=== PATIENT | male | born 1965 | race Caucasian/White ===

== ENCOUNTER 2018-05-17 05:13 | Day surgery (SDC) | payer OTHER ==
[2018-05-09 11:26] VITALS: BMI 42.5
--- NOTE | 2018-05-17 11:46 | HP ---
Satellite [facility] - Chief Complaint Chief Complaint: left knee pain - Past Medical History Allergies/Adverse Reactions: Allergies Allergy/AdvReac Type Severity Reaction Status Date / Time No Known Allergies Allergy Verified 05/09/18 11:20 - Current Medications Current Medications: Home Medications Medication Instructions Recorded Hydrocodone/Acetaminophen 1 each PO Q6H #20 tablet MDD 4 05/17/18 [Hydrocodone-Acetamin 5-325 mg] Satellite Physical Exam - Physical Examination General Appearance: Well Nourished, Well Developed, Alert & Oriented x3 ENT: Clear Lung: Normal air movement Heart: Regular rate & rhythm Extremities: Other (left knee- + swelling, + ttpm edially, + mcmurrays, nvi MRI + mmt) Neurological: Intact, Alert, Oriented Satellite Impression/Plan - Impression/Plan Impression: left knee mmt, djd Operative Procedure: left knee arthroscopy Date to be Performed: 05/17/18
[2018-05-17] MEDS ORDERED: BUPIVACAINE HCL/PF 0.5% (5MG/ML) 10 ML VIAL ONE (13:21)
[2018-05-17] MEDS ORDERED: MIDAZOLAM HCL 2 MG/2 ML SINGLE DOSE VIAL ONE (14:38)
[2018-05-17] MEDS ORDERED: PROPOFOL 20 ML ONE ×2 (14:38→14:42)
[2018-05-17] MEDS ORDERED: SUCCINYLCHOLINE CHLORIDE 200 MG/10 ML VIAL ONE (14:39)
[2018-05-17] MEDS ORDERED: LIDOCAINE HCL/PF 2% SDV 5ML VIAL ONE (14:42)
[2018-05-17] MEDS ORDERED: ceFAZolin SODIUM 1 GM VIAL ONE (14:45)
[2018-05-17] MEDS ORDERED: ceFAZolin SODIUM 1 GM VIAL IVPB ONE (14:49)
--- NOTE | 2018-05-17 15:38 | OP ---
Operative Note - Note: Operative Date: 05/17/18 Pre-Operative Diagnosis: left knee medial meniscus tear, OA Operation: left knee arthroscopy, partial medial meniscectomy, debridement chondroplasty Post-Operative Diagnosis: Same as Pre-op Surgeon: Janak Macedo Anesthesiologist/AVIAN KEEPER: Lakshmi Sultana Anesthesia: General, Local Specimens Removed: shavings Estimated Blood Loss (mls): 0 Drains, Volume Out (mls): 0 Blood Volume Replaced (mls): 0 Fluid Volume Replaced (mls): 500 Operative Report Dictated: Yes
--- NOTE | 2018-05-17 16:38 | OP ---
DATE OF OPERATION: 05/17/2018 PREOPERATIVE DIAGNOSIS: Left knee medial meniscus tear and osteoarthritis. POSTOPERATIVE DIAGNOSIS: Left knee medial meniscus tear and osteoarthritis. PROCEDURE: Left knee arthroscopy, partial medial meniscectomy, and debridement chondroplasty of the medial and patellofemoral joints. SURGEON: Nevin Lopes MD ASSISTANTS: None. ANESTHESIOLOGIST: Lakshmi Sultana CRNA. ANESTHESIA: LMA with intraarticular injection of 20 mL of 0.5% Marcaine. DRAINS: None. COMPLICATIONS: None. SPECIMEN: Arthroscopic shavings. BLOOD GIVEN: None. BLOOD LOSS: None. FLUIDS: 500 mL. INDICATIONS: This patient is a 52-year-old male with a preoperative diagnosis of a right knee medial meniscus tear and osteoarthritis. After understanding the potential risks, complications, alternatives, and benefits of surgery versus nonsurgical treatment, the patient elected to undergo this procedure. DESCRIPTION OF PROCEDURE: The patient was brought to the operating room and peripheral IV was placed, anesthesia was given, and 3 g of IV Ancef were given. The LMA anesthesia was induced. A C-clamp leg-leyva was placed with ample padding throughout including the Styrofoam. The left lower extremity was prepped and draped in a sterile fashion elevated and exsanguinated with an Esmarch bandage. Tourniquet was deflated to 275 mmHg. A superomedial outflow portal was established, the lateral portal was established, and a diagnostic arthroscopy was performed. A spinal needle was used to establish the medial portal and under direct visualization. The patient was seen to have a tear that has a small complex component mostly a radial component of the posterior horn in the junction of the body and posterior horn of the medial meniscus. This was debrided with a curved shaver and the patient had grade 2 chondromalacia changes on the medial tibial plateau and grade 2 with some areas of grade 3 changes on the medial femoral condyle. These were both debrided gently with a curved shaver. Photographs were taken. Anterior synovitis was removed. The notch looked good. The ACL looked good. The lateral compartment looked good with no osteoarthritis and the lateral meniscus was fine. Next I turned our attention to the patellofemoral joint where unfortunately the patient did have significant areas of grade 4 chondromalacia especially at the femoral trochlea. There was a lot of synovitis. Both the synovitis and debridement chondroplasty was removed. The area was copiously irrigated and washed out. Photographs were taken. All excess saline and debridement were removed. The arthroscopy portal was closed with 3-0 nylon sutures. The area was then washed and dried and 20 mL of 0.5% Marcaine was introduced into the joint. The area was covered with Xeroform, 4 x 4, Webril, and an JESE bandage. There were no complications during the case. The patient tolerated the procedure well and was brought to the ambulatory recovery room in stable condition. NEVIN LOPES M.D. [id number]
[2018-05-17] MEDS ORDERED: oxyCODONE HCL 5 MG TABLET PO PRN (16:59)
[2018-05-17] MEDS ORDERED: ONDANSETRON 4 MG/2 ML VIAL IVPUSH PRN (16:59)
[2018-05-17] MEDS ORDERED: LACTATED RINGERS SOLUTION 1,000 ML IV SCH (17:00)
[2018-05-17 17:39] VITALS: BP 136/67; PULSE 85; TEMP 98.5
--- NOTE | 2018-05-19 11:50 | PATH ---
Surgical Pathology Report Patient Name: VINNIE GAVIRIA [facility]. Rec. #: [id number] /Age/Gender: 1965 (Age: 52) / M Account: [id number] Location: [facility] SURGICAL Taken: 05/17/2018 Received: 05/18/2018 Reported: 05/19/2018 Physicians: Janak Macedo M.D. Specimen(s) Received LEFT KNEE SHAVINGS Clinical History Left knee tear Final Diagnosis KNEE, LEFT, ARTHROSCOPIC SHAVING: FIBROCARTILAGE WITH MYXOID DEGENERATIVE CHANGES, ALONG WITH PORTIONS OF SYNOVIUM AND HYALINE CARTILAGE. Electronically Signed Parmjit White M.D. Gross Description Received in formalin, labeled "left knee shavings," is a 4.5 x 4.3 x 0.4 cm. aggregate of kolb-yellow soft tissue fragments. A sales representative rural power portion is submitted in one cassette. /05/18/201805/18/2018
== END 2018-05-17 17:45 | disposition home or self-care (01) ==
LOC: JASU-SURG 05:13
PROVIDERS: ATTEND Orthopaedic Surgery
PROC: 0SBD4ZZ Excision of Left Knee Joint, Percutaneous Endoscopic Approach (ICD-10-PCS; principal; 2018-05-17 14:30)
DX: S83.232A Complex tear of medial meniscus, current injury, left knee, initial encounter (principal); M17.12 Unilateral primary osteoarthritis, left knee; X58.XXXA Exposure to other specified factors, initial encounter; Y93.9 Activity, unspecified; Y92.89 Other specified places as the place of occurrence of the external cause; Y99.9 Unspecified external cause status
CPT/HCPCS: 88304-TC; 94760

== ENCOUNTER 2023-07-22 04:16 | Day surgery (SDC) | payer OTHER ==
[2023-07-20 11:35] VITALS: BMI 40.8
[2023-07-22 09:16] VITALS: TEMP 97.8
[2023-07-22 09:58] VITALS: BP 121/67; PULSE 77; RESP 19
== END 2023-07-22 09:58 | disposition home or self-care (01) ==
LOC: JASU-ENDO 04:16
PROVIDERS: ATTEND Internal Medicine Gastroenterology
PROC: 0DBH8ZX Excision of Cecum, Via Natural or Artificial Opening Endoscopic, Diagnostic (ICD-10-PCS; 2023-07-22)
PROC: 0DBC8ZX Excision of Ileocecal Valve, Via Natural or Artificial Opening Endoscopic, Diagnostic (ICD-10-PCS; 2023-07-22)
PROC: 0DBN8ZX Excision of Sigmoid Colon, Via Natural or Artificial Opening Endoscopic, Diagnostic (ICD-10-PCS; principal; 2023-07-22 08:30)
DX: Z12.11 Encounter for screening for malignant neoplasm of colon (principal); D12.0 Benign neoplasm of cecum; K63.5 Polyp of colon; K64.8 Other hemorrhoids; K57.30 Diverticulosis of large intestine without perforation or abscess without bleeding
CPT/HCPCS: 88305-TC